=== PATIENT | female | born 1990 | race Caucasian/White ===

== ENCOUNTER 2016-12-21 15:04 | Emergency (ER) | payer SELFPAY ==
[2016-12-21 14:29] LABS: URINE APPEARANCE CLEAR; URINE BLOOD 1+ (NEG); URINE COLOR YELLOW; URINE GLUCOSE NEG (NORM); URINE LEUKOCYTE ESTERASE NEG (NEG); URINE NITRATE NEG (NEG); URINE PH 5.5 (5-8); URINE PROTEIN 1+ (NEG); URINE SOURCE CLEAN CATCH; URINE SPECIFIC GRAVITY >=1.030 (1.003-1.035); URINE UROBILINOGEN 0.2 MG/DL (NORM)
[2016-12-21 14:33] LABS: MICRO INDICATED? YES; URINE KETONE 3+ (NEG)
[2016-12-21 14:35] LABS: CULTURE INDICATED? NO; URINE BACTERIA NEG (NEG); URINE MUCUS PRESENT; URINE RBC 0-2 /[HPF] (0-2); URINE SQUAMOUS EPITHELIAL CELL MODERATE /[HPF]; URINE WBC NEG /[HPF] (0-5)
[2016-12-21 14:36] LABS: URINE BILIRUBIN NEG (NEG)
[2016-12-21 14:41] LABS: INFLUENZA A NEG (NEG); INFLUENZA B NEG (NEG)
[2016-12-21 14:45] LABS: BASOPHIL% 0.3 % (0-2.5); EOSINOPHIL% 0.1 % (0.0-7.0); HEMATOCRIT 40.8 % (35.0-45.0); HEMOGLOBIN 13.4 gm/dL (12.0-16.0); LYMPHOCYTE# 0.9 X10e3 (1.0-3.5); LYMPHOCYTE% 8.1 % (17.0-45.0); MEAN CELL VOLUME 87.8 FL (83-96); MEAN CORPUSCULAR HEMOGLOBIN 28.9 PG (28-34); MEAN CORPUSCULAR HGB CONC 32.9 g/dL (30-36); MEAN PLATELET VOLUME 8.1 FL (6.5-11.5); MONOCYTE# 0.6 X10e3 (0-1.0); MONOCYTE% 5.4 % (3.0-12.0); NEUTROPHIL% 86.1 % (40-75); PLATELET COUNT 243 X10e3 (140-420); RED BLOOD COUNT 4.64 X10e (3.90-5.30); RED CELL DISTRIBUTION WIDTH 12.8 % (11.0-15.5); WHITE BLOOD COUNT 11.6 X10e3 (4.0-10.5)
[2016-12-21 14:46] LABS: DIFF IND NO
[~2016-12-21 15:04] MED LIST: ACETAMINOPHEN PO; CIPRO PO; FIORICET 50-321 EACH PO; IMITREX PO; KEFLEX PO; LEVAQUIN PO; MAGIC MOUTHWASH PO; NO MEDICATIONS; PERCOCET5/325 PO; PHENERGAN PO; PHENERGAN25 M1 PO; PYRIDIUM PO; STERAPRED5 MG/DOSE1 PO; VICODIN 5/1 TAB 5/50 PO; VICODIN 5/500 T1 TAB PO; YASMIN 28 TABLE1 TAB PO; ZITHROMAX PO; ZOFRAN PO
[2016-12-21 15:15] LABS: ALBUMIN SERUM 4.5 g/dL (3.5-5.0); BILIRUBIN,TOTAL 0.8 mg/dL (0.2-2.0); BUN/CREATININE RATIO 21.42; CALCIUM SERUM 9.7 mg/dL (8.4-10.2); CREATININE SERUM 0.7 mg/dL (0.6-1.4); GLOM FILT RATE Estimated 119.6 mL/min (>60); POTASSIUM 3.6 mmol/L (3.5-5.1); PROTEIN TOTAL SERUM 7.8 g/dL (6.0-8.3)
== END 2016-12-21 16:38 | disposition home or self-care (01) ==
LOC: SED 15:04
PROVIDERS: Nurse Practitioner
DX: O21.0 Mild hyperemesis gravidarum (principal); Z87.442 Personal history of urinary calculi; Z90.49 Acquired absence of other specified parts of digestive tract; Z88.2 Allergy status to sulfonamides
CPT/HCPCS: 36415; 80053; 81003; 83690; 84703; 85025; 87804; 96361; 96374; 99284; J2550